=== PATIENT | male | born 2005 | race Caucasian/White ===

== ENCOUNTER → 2024-02-22 | Outpatient (CLI) | payer BC, SELFPAY ==
[2024-02-22 10:03] LABS: Misc Send Out* See Sep Rpt
== END | disposition home or self-care (01) ==
LOC: COPL 09:37
PROVIDERS: PCP Family Medicine; Referring Provider Allergy & Immunology; Visit Provider Allergy & Immunology
DX: T78.05XD Anaphylactic reaction due to tree nuts and seeds, subsequent encounter (principal); T78.08XD Anaphylactic reaction due to eggs, subsequent encounter
CPT/HCPCS: 82785; 86003